=== PATIENT | male | born 1955 | race Caucasian/White ===

== ENCOUNTER 2019-12-06 20:09 | Inpatient (IN) | payer OTHER, SELFPAY ==
[2019-12-06 20:46] LABS: #Basophils 0.1 thou/uL (0.0-0.2); #Eosinphils 0.3 thou/uL (0.0-0.7); #Monocytes 0.6 thou/uL (0.11-0.59); #Neutrophils 5.5 thou/uL (1.40-6.50); %Basophils 0.7 % (0.0-1.0); %Eosinophils 3.4 % (0.0-10.0); %Lymphocytes 23.5 % (21.0-51.0); %Monocytes 6.9 % (0.0-10.0); %Neutrophils 65.5 % (42.0-75.0); Hemoglobin 16.3 g/dL (14.0-18.0); Mean Corpuscular Hemoglobin 34.6 pg (27.0-31.0); Mean Corpuscular Volume 98.6 fL (78.0-98.0); Mean Platelet Volume 8.7 fL (7.4-10.4); Platelet Count 163 thou/uL (130-400); RBC Distribution Width 11.4 % (11.5-14.5); Red Blood Cell (RBC) Count 4.71 mill/uL (4.70-6.10); White Blood Cell (WBC) Count 8.4 thou/uL (4.8-10.8)
[2019-12-06 21:00] LABS: ALT (SGPT) 40 U/L (8-55); AST (SGOT) 19 U/L (5-34); Albumin 4.1 g/dL (3.4-4.8); Alkaline Phosphatase 127 U/L (40-110); Anion Gap 12 mmol/L (10-20); BUN (Urea Nitrogen) 23 mg/dL (8.4-25.7); Bilirubin, Total 0.4 mg/dL (0.2-1.2); Calc. Creatinine Clearance 0 mL/min (70-130); Calcium 9.5 mg/dL (7.8-10.44); Carbon Dioxide 25 mmol/L (23-31); Chloride 107 mmol/L (98-107); Estimated GFR-MDRD 74; Glucose 127 mg/dL (80-115); Potassium 3.7 mmol/L (3.5-5.1); Protein, Total 7.1 g/dL (5.8-8.1); Sodium 140 mmol/L (136-145)
--- NOTE | 2019-12-06 21:14 | CT ---
CT Brain WO Con History: Unresponsive Comparison: CT brain November 08, 2019 Findings: Cystic encephalomalacia of the entire left MCA territory and portion of the INTERN BRAND territory. No acute hemorrhage. No midline shift. No acute osseous abnormality. Old left lateral orbital wall and zygomatic fracture. Wallerian degeneration of the left middle cerebral peduncle. Impression: Chronic findings. No acute intracranial abnormality.
[2019-12-06] MEDS ORDERED: Cefepime 2 GM VIAL ONE (21:26)
--- NOTE | 2019-12-06 21:39 | RAD ---
XR Chest 1 View Portable History: Altered mental status Comparison: None. Findings: Lungs are clear. No pneumothorax. No effusion. Cardiac silhouette and mediastinal contours are relatively normal for lung hyperinflation. No acute osseous abnormality. Impression: No acute intrathoracic abnormality.
[2019-12-06 22:16] LABS: Bacteria/HPF None Seen HPF (None Seen); Bilirubin Negative (Negative); Blood, Urine Trace (Negative); Clarity Clear (Clear); Glucose, Urine (Dipstick) Normal (Negative); Ketone, Urine Negative (Negative); Leukocyte Negative Leu/uL (Negative); Nitrite Negative (Negative); Protein, Urine (Dipstick) 30 mg/dL (Neg-Trace); Specific Gravity, Urine 1.028 (1.002-1.036); Squamous Epithelial None Seen HPF (0-3); Urobilinogen Normal mg/dL (Less than 2); pH, Urine 5.5 (5.0-9.0)
[2019-12-06 22:17] LABS: Sperm/HPF 4+ HPF (None Seen)
[2019-12-06 22:27] LABS: Acetaminophen Less than 6.0 mcg/mL (10.0-30.0); Alcohol Less than 10 mg/dL (Less than 10); Salicylate Less than 8.0 mg/dL (15.0-30.0)
--- NOTE | 2019-12-06 22:47 | PDOC.FPRHP ---
Addendum entered and electronically signed by Carie Kennedy MD 12/07/19 01:36 : Allergies: NKDA Medications: Atorvastatin 20mg, Aspirin 325 mg, trazodone 50mg, escitalopram 10mg, diclofenac 50mg Original Note: - History of Present Illness Chief Complaint: unresponsive History of Present Illness: Pt is a 64 yo male with hx of CVA and tobacco use who presented to ED for AMS and labored breathing. At baseline he has difficulty communicating and he had been given ativan so history was obtained from his sister who is his senior reliability engineer. Sister states that she had dinner with pt and he was fine, then put him in bed at 1900. When she checked on him 5 minutes later, he was unresponsive, had labored breathing and cyanosis of his lips. Before this episode the only symptoms he had were a couple of times of feeling nauseous over the past couple of weeks. About one month ago he fell and was evaluated at the hospital in [place] and sent home. In March of 2019, pt had a CVA. At baseline, he has right sided weakness, uses a wheelchair and has trouble with his speech. He is able to eat and drink normally. ED Course: En route to ED, pt given ativan due to agitation. In ED he was given 1L NS and cefepime 2g. - Allergies/Adverse Reactions Allergies Allergy/AdvReac Type Severity Reaction Status Date / Time No Known Drug Allergies Allergy Verified 12/07/19 02:25 - Home Medications Medication Instructions Recorded Confirmed Type Aspirin 325 mg PO DAILY 12/07/19 12/07/19 History Atorvastatin Calcium 20 mg PO DAILY 12/07/19 12/07/19 History Diclofenac Sodium 50 mg PO BID 12/07/19 12/07/19 History Escitalopram Oxalate 10 mg PO DAILY 12/07/19 12/07/19 History traZODone HCl [Trazodone HCl] 50 mg PO QPM 12/07/19 12/07/19 History - History PMHx: CVA in 2019 PSHx: Peg tube 2018, has been removed FHx: Father- [place], Brother- COPD Social: He is a - [employer]. Smokes 4 cigarettes per day, extensive smoking history, lives with his sister - Review of Systems ROS unobtainable: due to mental status - Vital signs BP: 103/66, Pulse: 93, Resp: 20, O2 sat: 100 on (Room Air), - Physical Exam -Constitutional: At points he was agitated, trying to pull out his IV and pulse ox, and then at other times was sleeping. Did follow some commands but was not able to communicate HEENT: normocephalic and atraumatic, grossly normal hearing, MMM Neck: supple, trachea midline Chest: no-tender to palpation Heart: no murmurs/rubs/gallops, pulses present, no edema -Heart: tachycardic -Lungs: Using accessory muscles for respiration, difficult to auscultate due to sedation Abdomen: soft, non-tender, bowel sounds present -Musculoskeletal: Right sided weakness from CVA in 2019, not able to follow commands but was moving all limbs -Neurological: unable to assess Skin: no rash/lesions, no jaundice Heme/Lymphatic: no unusual bruising or bleeding, no purpura FMR H&P: Results - Labs Result Diagrams: 12/07/19 02:34 12/06/19 20:30 Lab results: WBC 8.4 thou/uL (4.8-10.8) 12/06/19 20:30 Hgb 16.3 g/dL (14.0-18.0) 12/06/19 20:30 Hct 46.5 % (42.0-52.0) 12/06/19 20:30 MCV 98.6 fL (78.0-98.0) H 12/06/19 20:30 Plt Count 163 thou/uL (130-400) 12/06/19 20:30 Neutrophils % 65.5 % (42.0-75.0) 12/06/19 20:30 Sodium 140 mmol/L (136-145) 12/06/19 20:30 Potassium 3.7 mmol/L (3.5-5.1) 12/06/19 20:30 Chloride 107 mmol/L (98-107) 12/06/19 20:30 Carbon Dioxide 25 mmol/L (23-31) 12/06/19 20:30 BUN 23 mg/dL (8.4-25.7) 12/06/19 20:30 Creatinine 1.02 mg/dL (0.7-1.3) 12/06/19 20:30 Glucose 127 mg/dL (80-115) H 12/06/19 20:30 Lactic Acid 1.8 mmol/L (0.5-2.2) 12/06/19 20:30 Calcium 9.5 mg/dL (7.8-10.44) 12/06/19 20:30 Total Bilirubin 0.4 mg/dL (0.2-1.2) 12/06/19 20:30 AST 19 U/L (5-34) 12/06/19 20:30 ALT 40 U/L (8-55) 12/06/19 20:30 Alkaline Phosphatase 127 U/L (40-110) H 12/06/19 20:30 Serum Total Protein 7.1 g/dL (5.8-8.1) 12/06/19 20:30 Albumin 4.1 g/dL (3.4-4.8) 12/06/19 20:30 Urine Ketones Negative mg/dL (Negative) 12/06/19 21:52 Urine Blood Trace (Negative) A 12/06/19 21:52 Urine Nitrite Negative (Negative) 12/06/19 21:52 Ur Leukocyte Esterase Negative Sanjay/uL (Negative) 12/06/19 21:52 Urine RBC 7-10 HPF (0-3) A 12/06/19 21:52 Urine WBC 11-20 HPF (0-3) A 12/06/19 21:52 Ur Squamous Epith Cells None Seen HPF (0-3) 12/06/19 21:52 Urine Bacteria None Seen HPF (None Seen) 12/06/19 21:52 Laboratory Tests 12/06/19 12/06/19 20:30 20:30 Lactic Acid 1.8 Troponin I 0.022 FMR H&P: A/P - Plan 1. SIRS -meets criteria due to HR and RR - start Rocephin and Vanc -was given 1L NS in ED, will add 1L LR bolus and then maintenance at 125ml/hr -labs to look for source: UA, U/B Cx -D-dimer to r/o PE 2. AMS -NPO until bedside swallow -gave Aspirin [place] -can consider TIA, evaluate neuro status when not sedated, possible MRI 3. Tobacco Use -encourage cessation 4. Hx of CVA -consult PT/OT -continue home meds Code: Full Prophylaxis: Lovenox PCP: [place] [facility] call Disposition: admit to stroke for further eval and workup of acute status change , expected LOS>48hrs FMR H&P: Upper Level - Plan Date/Time: 12/06/19 5529 I, Eligio Rehman DO, have evaluated this patient and agree with findings/plan as outlined by finance accounting internship resident. Pertinent changes/additions are listed here. 64 yo w pmhx sig for Lsided CVA w residual deficit presents for acute change in status. Sister, who he lives with reports that earlier this evening he became diaphoretic and dyspneic acutely. She called EMS at that time, he was improving by the time they arrived. She reports he is sleepy, but back to baseline upon my examination. She denies any preceding symptoms. En route he was given Ativan for agitation, in the ED CT brain was neg. he was given 1L and cefepime, labs wnl. EKG reveals sinus tach. No O2 requirement, vss. Physical exam reveals previously mentioned deficits, chest: regular rhythm, ctab. Abd: nttp. Arousable to verbal and painful stimulation. GCS 12-13. Differential is broad at this point, consider SIRS vs PE as primary diagnosis. Will further eval these with procal/ddimer, begin broad spectrum abx and give another L of fluid. TIA is another possibility, however less likely given story. Consider MRI/echo/ risk stratification in the AM. Pt is stable at this point for admission to stroke floor, however he should be monitored for signs of deterioration, or lack of improvement with the above mentioned interventions. See finance accounting internship note for mgmt. of chronic problems. ELOS>48hrs. Addendum - Attending - Attending Attestation Date/Time: 12/07/19 8137 I personally evaluated the patient and discussed the management with Dr. Kennedy/ Ori. I agree with the History, Examination, Assessment and Plan documented above with any addition or exceptions noted below. seen and evaluated on 12/05. presented with AMS from baseline. No family at time of my exam and had receive ativan for agitation. exam unremarkable but unable to assess neuro due to sedation. admit for encephalopathy NOS will continue to monitor. Meets SIRS criteria but no identifiable source at this time. will continue to evaluate for possible source of infection.
[2019-12-07] MEDS ORDERED: Acetaminophen 325 MG TAB PO PRN ×2 (02:08→02:22)
[2019-12-07] MEDS ORDERED: Ondansetron PF 4 MG/2 ML Vial IVP PRN (02:22)
[2019-12-07] MEDS ORDERED: Acetaminophen 650 MG Suppository PR PRN (02:22)
[2019-12-07] MEDS ORDERED: Ondansetron ODT 4 MG TAB PO PRN (02:22)
[2019-12-07 02:40] LABS: #Basophils 0.1 thou/uL (0.0-0.2); #Eosinphils 0.2 thou/uL (0.0-0.7); #Lymphocytes 2.8 thou/uL (1.20-3.40); #Monocytes 0.8 thou/uL (0.11-0.59); #Neutrophils 4.6 thou/uL (1.40-6.50); %Eosinophils 2.5 % (0.0-10.0); %Lymphocytes 32.6 % (21.0-51.0); %Monocytes 9.7 % (0.0-10.0); %Neutrophils 54.2 % (42.0-75.0); Hemoglobin 15.3 g/dL (14.0-18.0); Mean Corpuscular HGB CONC 34.8 g/dL (32.0-36.0); Mean Corpuscular Hemoglobin 34.7 pg (27.0-31.0); Mean Corpuscular Volume 99.7 fL (78.0-98.0); Mean Platelet Volume 8.6 fL (7.4-10.4); Platelet Count 142 thou/uL (130-400); RBC Distribution Width 11.4 % (11.5-14.5); Red Blood Cell (RBC) Count 4.39 mill/uL (4.70-6.10); White Blood Cell (WBC) Count 8.5 thou/uL (4.8-10.8)
[2019-12-07] MEDS ORDERED: Vancomycin HCl 1.5 GM in Sodium Chloride 0.9% 250 ML 300 ML IVPB SCH ×2 (02:45→09:00)
[2019-12-07] MEDS ORDERED: Lactated Ringer's 1,000 ML IV SCH (02:45)
[2019-12-07] MEDS ORDERED: Aspirin 300 MG Suppository PR SCH (02:45)
[2019-12-07 03:18] LABS: ALT (SGPT) 33 U/L (8-55); AST (SGOT) 17 U/L (5-34); Albumin 3.8 g/dL (3.4-4.8); Alkaline Phosphatase 111 U/L (40-110); Anion Gap 10 mmol/L (10-20); BUN (Urea Nitrogen) 23 mg/dL (8.4-25.7); Bilirubin, Total 0.4 mg/dL (0.2-1.2); Calc. Creatinine Clearance 104 mL/min (70-130); Calcium 8.6 mg/dL (7.8-10.44); Carbon Dioxide 26 mmol/L (23-31); Chloride 109 mmol/L (98-107); Estimated GFR-MDRD 82; Globulin 2.6 g/dL (2.4-3.5); Glucose 108 mg/dL (80-115); Potassium 4.1 mmol/L (3.5-5.1); Protein, Total 6.4 g/dL (5.8-8.1); Sodium 141 mmol/L (136-145)
[2019-12-07] MEDS: cefTRIAXone\\ROCEPHIN 2 GM in Sodium Chloride 0.9% 100 ML IVPB SCH (05:50)
[2019-12-07] MEDS: Lactated Ringer's 1,000 ML IV SCH ×3 (06:21→20:15)
--- NOTE | 2019-12-07 06:57 | PDOC.FM ---
- Subjective Subjective: Patient denies any acute concerns or pain. He denies dyspnea and chest pain. - Objective MAR Reviewed: Yes Vital Signs & Weight: Vital Signs (12 hours) Temp Pulse Resp BP Pulse Ox 12/07/19 04:00 82 20 105/62 97 12/07/19 02:22 98.5 F 95 24 H 115/76 95 12/07/19 01:45 97 12/06/19 20:23 98.5 F 95 24 H 115/76 95 Weight Weight 91.626 kg Result Diagrams: 12/07/19 02:34 12/07/19 02:34 Radiology Reviewed by me: Yes Phys Exam - Physical Examination Patient anxious appearing, restless, moving legs persistently Neck: no JVD Respiratory: clear to auscultation bilateral Cardiovascular: RRR, no significant murmur, no rub Gastrointestinal: soft, non-tender, no distention, positive bowel sounds Musculoskeletal: no edema, pulses present R sided weakness (2/5) w/ RUE contractures Skin: no rash, normal turgor Dx/Plan - Plan Plan: SIRS - unknown etiology of infection - On Rocephin and Vanc -LR IVF @ 125ml/hr - CTA pending to evaluate for PE Encephalopathy 2/2 possible CVA - Pending CT PE results, possible brain MRI brain, ECHO - Patient at high risk for delirium. Reduce risk by: - Frequently reorienting the patient - keep blinds open during day - Make sure patient is having bowel movements Hx of CVA - Baseline R sided weakness -consult PT/OT -continue home meds Tobacco Use -encourage cessation Code: Full Prophylaxis: Lovenox PCP: [place] [facility] call Disposition: Eval and workup of acute status change, expected LOS>48hrs Addendum - Attending - Attending Attestation Date/Time: 12/07/19 2090 I personally evaluated the patient and discussed the management with Dr. Arias I agree with the History, Examination, Assessment and Plan documented above with any addition or exceptions noted below - Patient sitting at side of bed; mumbles but able to answer some simple questions. Afebrile VSS. A/P: 1) Acute AMS - CT brain with changes from prior CVA; no new findings. Procal negative. pending bedside swallow. Neurology consulted. Will check ammonia level and ABG. 2) Tachycardia and AMS- unable to obtain CTA to evaluate for PE due to agitation ; will start on therapeutic lovenox pending ability to get CTA. 3) H/o large CVA with resideual right hemoparesis- continue to monitor
[2019-12-07] MEDS ORDERED: Enoxaparin Sodium 40 MG/0.4 ML SYRINGE SC SCH (09:00)
[2019-12-07] MEDS: Lorazepam 2 MG/ML VIAL SLOW IVP PRN ×2 (09:15→21:00)
[2019-12-07] MEDS: Atorvastatin Calcium 20 MG TAB PO SCH (09:56)
[2019-12-07] MEDS: Aspirin 325 MG TAB PO SCH (09:56)
[2019-12-07] MEDS: Diclofenac Sodium 50 MG DR TAB PO SCH ×2 (09:56→20:15)
[2019-12-07] MEDS: Escitalopram Oxalate 10 mg Tablet PO SCH (09:57)
[2019-12-07] MEDS ORDERED: Lorazepam 2 MG/ML VIAL SLOW IVP SCH (10:04)
[2019-12-07] MEDS: Vancomycin HCl 1.25 GM in Sodium Chloride 0.9% 250 ML 250 ML IVPB SCH (14:26)
[2019-12-07 14:37] LABS: Amphetamine Not Detected (NotDetected); Benzodiazepine Screen Detected (NotDetected); Cocaine Metabolite Screen Not Detected (NotDetected); Medtox Reader # READER 1; Methamphetamine Not Detected (NotDetected); Opiate Screen Not Detected (NotDetected); Phencyclidine (PCP) Not Detected (NotDetected); THC/Cannabinoid Screen Not Detected (NotDetected)
[2019-12-07 14:38] LABS: Barbiturates Screen Not Detected (NotDetected); Medtox Control Line Valid? VALID (VALID); Methadone Not Detected (NotDetected); Oxycodone Screen Not Detected (NotDetected); Tricyclic Screen Not Detected (NotDetected)
--- NOTE | 2019-12-07 15:02 | CON ---
NEUROLOGY CONSULTATION DATE OF CONSULTATION: 12/07/2019 REASON FOR CONSULTATION: Altered mental status. HISTORY OF PRESENT ILLNESS: Mr. Anatoly Porras is a 64-year-old male with history significant for CVA with residual right hemiparesis and right facial droop and nicotine abuse, presented to the emergency room with altered mental status and difficulty breathing. The patient seems to be extremely agitated and history is provided by the patient's twin sister who is real estate loan processor. According to the sister , he had CVAs in March 2019 and since then she has been taking care of him. At baseline, he has right-sided weakness and uses a wheelchair and problem with speech, but still he was able to carry a conversation yesterday. He was fine until dinner. Around 7 p.m., she helped him to the bed and around 5 minutes later, he had extremely labored breathing. His lips were blue and he was sweating all over and became unresponsive. She did not notice any abnormal body movements or jerking or seizure-like activity. He was brought to the hospital and admitted for further evaluation. He became extremely agitated and received Ativan en route to the hospital. Neurology was consulted for altered mental status. HOME MEDICATIONS: 1. Aspirin 325 mg daily. 2. Atorvastatin 20 mg daily. 3. Diclofenac sodium 50 mg p.o. b.i.d. 4. Escitalopram oxalate 10 mg daily. 5. Trazodone 50 mg p.o. q.a.m. PAST MEDICAL HISTORY: Diabetes, hypertension, hyperlipidemia, stroke in 2019 with residual right hemiparesis. PAST SURGICAL HISTORY: Status post PEG tube placement 2018, which has been removed. FAMILY HISTORY: Significant for coronary artery disease and COPD. SOCIAL HISTORY: He is a [employer] . He smokes 4 cigarettes per day. Lives with his sister who is a real estate loan processor. REVIEW OF SYSTEMS: Unobtainable due to mental status. - Allergies/Adverse Reactions Allergies Allergy/AdvReac Type Severity Reaction Status Date / Time No Known Drug Allergies Allergy Verified 12/07/19 02:25 - Home Medications Medication Instructions Recorded Confirmed Type Aspirin 325 mg PO DAILY 12/07/19 12/07/19 History Atorvastatin Calcium 20 mg PO DAILY 12/07/19 12/07/19 History Diclofenac Sodium 50 mg PO BID 12/07/19 12/07/19 History Escitalopram Oxalate 10 mg PO DAILY 12/07/19 12/07/19 History traZODone HCl [Trazodone HCl] 50 mg PO QPM 12/07/19 12/07/19 History Lab results: WBC 8.4 thou/uL (4.8-10.8) 12/06/19 20:30 Hgb 16.3 g/dL (14.0-18.0) 12/06/19 20:30 Hct 46.5 % (42.0-52.0) 12/06/19 20:30 MCV 98.6 fL (78.0-98.0) H 12/06/19 20:30 Plt Count 163 thou/uL (130-400) 12/06/19 20:30 Neutrophils % 65.5 % (42.0-75.0) 12/06/19 20:30 Sodium 140 mmol/L (136-145) 12/06/19 20:30 Potassium 3.7 mmol/L (3.5-5.1) 12/06/19 20:30 Chloride 107 mmol/L (98-107) 12/06/19 20:30 Carbon Dioxide 25 mmol/L (23-31) 12/06/19 20:30 BUN 23 mg/dL (8.4-25.7) 12/06/19 20:30 Creatinine 1.02 mg/dL (0.7-1.3) 12/06/19 20:30 Glucose 127 mg/dL (80-115) H 12/06/19 20:30 Lactic Acid 1.8 mmol/L (0.5-2.2) 12/06/19 20:30 Calcium 9.5 mg/dL (7.8-10.44) 12/06/19 20:30 Total Bilirubin 0.4 mg/dL (0.2-1.2) 12/06/19 20:30 AST 19 U/L (5-34) 12/06/19 20:30 ALT 40 U/L (8-55) 12/06/19 20:30 Alkaline Phosphatase 127 U/L (40-110) H 12/06/19 20:30 Serum Total Protein 7.1 g/dL (5.8-8.1) 12/06/19 20:30 Albumin 4.1 g/dL (3.4-4.8) 12/06/19 20:30 Urine Ketones Negative mg/dL (Negative) 12/06/19 21:52 Urine Blood Trace (Negative) A 12/06/19 21:52 Urine Nitrite Negative (Negative) 12/06/19 21:52 Ur Leukocyte Esterase Negative Sanjay/uL (Negative) 12/06/19 21:52 Urine RBC 7-10 HPF (0-3) A 12/06/19 21:52 Urine WBC 11-20 HPF (0-3) A 12/06/19 21:52 Ur Squamous Epith Cells None Seen HPF (0-3) 12/06/19 21:52 Urine Bacteria None Seen HPF (None Seen) 12/06/19 21:52 Laboratory Tests 12/06/19 12/06/19 20:30 20:30 Lactic Acid 1.8 Troponin I 0.022 PHYSICAL EXAMINATION: VITAL SIGNS: Blood pressure 100/60, pulse 80, respiratory rate 18. GENERAL: Extremely agitated male, in acute distress. He is oriented to person only. CVS: Regular rate and rhythm. CHEST: Clear. ABDOMEN: Soft. NECK: No carotid bruit. NEUROLOGIC: Mental status; the patient is alert and oriented to person only. He does not follow commands. He does not maintain eye contact. Cranial nerves; pupils round and reactive to light. Right facial droop. Extraocular movements intact. Tongue midline. Hearing seems to be intact. Motor, right hemiparesis. Reflexes, brisk on the right. Cerebellar; unable to perform on the right secondary to weakness. Gait deferred due to patient's safety reasons. LABORATORY DATA: I reviewed the head CT which was negative for acute intracranial pathology. ASSESSMENT AND PLAN: Mr. Anatoly Porras is consulted for altered mental status. He does have risk factors for stroke. Presentation seems more like delirium than acute process. Recommend MRI of the brain to rule out acute intracranial process. If not possible due to agitation, then repeat Head CT 48 hours after symptom onset. Neuro checks every 4 hours. Permissive control of blood pressure at this time. Continue aspirin per rectal for secondary stroke infection. N.p.o. until cleared by Speech. Strict control of blood glucose. Continue home medications. Continue medical management per primary team. Patient could not tolerate EEG. Observe delirium precautions. Case discussed with the resident taking care of the patient. Thank you for the consult. Job ID: [id number] [facility]
[2019-12-07] MEDS: Enoxaparin Sodium 100 MG/ML SYRINGE SC SCH (20:15)
[2019-12-07] MEDS: traZODone HCl 50 MG TAB PO SCH (20:15)
[2019-12-08] MEDS: Vancomycin HCl 1.25 GM in Sodium Chloride 0.9% 250 ML 250 ML IVPB SCH ×2 (03:29→15:34)
[2019-12-08] MEDS: Lactated Ringer's 1,000 ML IV SCH (03:30)
[2019-12-08 04:32] LABS: Hemoglobin 14.2 g/dL (14.0-18.0); Platelet Count 137 thou/uL (130-400)
[2019-12-08] MEDS: cefTRIAXone\\ROCEPHIN 2 GM in Sodium Chloride 0.9% 100 ML IVPB SCH (05:34)
--- NOTE | 2019-12-08 07:36 | PDOC.FM ---
- Subjective Subjective: Patient has no acute concerns this morning. He denies difficulty breathing, MARTINEZ, CP. - Objective Vital Signs & Weight: Vital Signs (12 hours) Temp Pulse Resp BP Pulse Ox 12/08/19 04:00 99.2 F 90 18 114/72 94 L 12/07/19 20:00 98.1 F 110 H 20 150/98 H 95 12/07/19 19:35 94 L Weight Weight 86.545 kg I&O: 12/07/19 12/08/19 12/09/19 06:59 06:59 06:59 Intake Total 1846 Output Total 200 Balance 1646 Result Diagrams: 12/08/19 03:57 12/08/19 03:57 Phys Exam - Physical Examination Constitutional: NAD Restless in bed HEENT: moist MMs, sclera anicteric Neck: no JVD Respiratory: no wheezing, no rales, no rhonchi, clear to auscultation bilateral Cardiovascular: RRR, no significant murmur, no rub Gastrointestinal: soft, non-tender, no distention, positive bowel sounds Musculoskeletal: no edema, pulses present R sided weakness with RUE contractures stable from yesterday Psychiatric: normal affect Dx/Plan - Plan Plan: SIRS - unknown etiology of infection, patient had tachycardia and tachypnea - On Rocephin and Vanc - CTA unable to be obtained 2/2 patient mental status - Therapeutic lovenox started for PE treatment Encephalopathy 2/2 possible CVA - Repeat CTH today to evaluate for stroke - Patient at high risk for delirium. Reduce risk by: - Frequently reorienting the patient - keep blinds open during day - Make sure patient is having bowel movements Hx of CVA - Baseline R sided weakness -consult PT/OT -continue home meds Tobacco Use -encourage cessation Code: Full Prophylaxis: Lovenox [facility] [place] Disposition: Eval and workup of acute status change, expected LOS<48hrs Addendum - Attending - Attending Attestation Date/Time: 12/08/19 1311 I personally evaluated the patient and discussed the management with I agree with the History, Examination, Assessment and Plan documented above with any addition or exceptions noted below. Patient with AMS less agitated at present exam stable right hemiparesis s/p prior CVA need to proceed with repeat CT juma or MRI r/o extension of CVA and r/o PE preferably with CTA. regard agitation and getting stable for further imaging Will try phenobarbital as some concern with using major tranquilizer (rossy et al ) with relative prolonged OT.
[2019-12-08] MEDS: Aspirin 325 MG TAB PO SCH (08:31)
[2019-12-08] MEDS: Atorvastatin Calcium 20 MG TAB PO SCH (08:31)
[2019-12-08] MEDS: Diclofenac Sodium 50 MG DR TAB PO SCH ×2 (08:31→21:38)
[2019-12-08] MEDS: Escitalopram Oxalate 10 mg Tablet PO SCH (08:31)
[2019-12-08] MEDS: Enoxaparin Sodium 100 MG/ML SYRINGE SC SCH ×2 (08:32→21:39)
[2019-12-08 10:25] LABS: Vancomycin, Trough 21.8 ug/mL
[2019-12-08] MEDS ORDERED: Iopamidol-370 76% 500 ML 1 ML ONE (12:07)
--- NOTE | 2019-12-08 14:29 | PDOC.HOSPP ---
- Subjective Encounter Date: 12/08/19 Subjective: NEUROLOGY PROGRESS NOTE Patient continues to be agitated and oriented to person only. - Objective Vital Signs & Weight: Vital Signs (12 hours) Temp Pulse Resp BP BP BP BP 12/08/19 11:15 98.1 F 68 18 102/70 12/08/19 10:13 114/73 130/84 12/08/19 08:00 98.3 F 84 16 109/66 12/08/19 04:00 99.2 F 90 18 114/72 Pulse Ox 12/08/19 11:15 94 L 12/08/19 10:13 12/08/19 08:00 95 12/08/19 04:00 94 L Weight Weight 190 lb 12.8 oz I&O: 12/07/19 12/08/19 12/09/19 06:59 06:59 06:59 Intake Total 1846 Output Total 200 Balance 1646 Result Diagrams: 12/08/19 03:57 12/08/19 03:57 Radiology Reviewed by me: Yes Hospitalist ROS - Review of Systems ROS unobtainable: due to mental status (agiatation) - Medication Medications: Active Medications Generic Name Dose Route Start Last Admin Trade Name Freq PRN Reason Stop Dose Admin Aspirin 325 mg 12/07/19 09:00 12/08/19 08:31 Aspirin PO 325 mg DAILY JOYCE Administration Atorvastatin Calcium 20 mg 12/07/19 09:00 12/08/19 08:31 Lipitor PO 20 mg DAILY JOYCE Administration Diclofenac Sodium 50 mg 12/07/19 09:00 12/08/19 08:31 Voltaren PO 50 mg BID JOYCE Administration Enoxaparin Sodium 90 mg 12/07/19 21:00 12/08/19 08:32 Lovenox SC 90 mg 0900,2100 JOYCE Administration Escitalopram Oxalate 10 mg 12/07/19 09:00 12/08/19 08:31 Lexapro PO 10 mg DAILY JOYCE Administration Ceftriaxone Sodium 2 gm/ 100 mls @ 200 mls/hr 12/07/19 05:00 12/08/19 05:34 Sodium Chloride IVPB 100 mls 0500 JOYCE Administration Vancomycin HCl 1.25 gm/ Sodium 250 mls @ 166.667 mls/hr 12/07/19 15:00 03:29 Chloride IVPB 250 mls 0300,1500 JOYCE Administration Lorazepam 1 mg 12/07/19 08:31 12/07/19 21:00 Ativan SLOW IVP 1 mg Q4H PRN Administration Anxiety/Agitation Trazodone HCl 50 mg 12/07/19 21:00 12/07/19 20:15 Desyrel PO 50 mg QPM JOYCE Administration - Exam General Appearance: awake alert Eye: PERRL ENT: normocephalic atraumatic Neck: supple Heart: RRR Respiratory: CTAB Gastrointestinal: soft Extremities: no cyanosis Skin: normal turgor Neurological: no new deficit, facial droop, hemiplegia, speech deficit Musculoskeletal: no muscle wasting Psychiatric: oriented to person (agitated) Hosp A/P (1) AMS (altered mental status) Code(s): R41.82 - ALTERED MENTAL STATUS, UNSPECIFIED Status: Acute (2) CVA (cerebral vascular accident) Code(s): I63.9 - CEREBRAL INFARCTION, UNSPECIFIED Status: Acute - Plan PT/OT, speech therapy, DVT proph w/lovenox 64 year old with prior CVA consulted for altered mental status. Repeat Head CT 48 hours after symptom onset to rule out acute change. Patient unable to tolerate MRI Brain due to agitation. EEG 3 minutes study did nt reveal any seizure activity . He pulled the leads off so study could not be completed. Observe delirium precautions. Neurochecks every 4 hours. Continue home medications. Continue aspirin and statin for secondary stroke prevention. PT/OT Continue medical management per primary team.
[2019-12-08 14:45] LABS: Vancomycin, Trough 15.5 ug/mL
--- NOTE | 2019-12-08 15:13 | CT ---
CT BRAIN 12/08/19 PROVIDED CLINICAL HISTORY: Stroke. FINDINGS: Comparison is made with the study dated 12/06/19. Extensive encephalomalacia in the distribution of the left middle cerebral artery is redemonstrated. The ventricular system appears unchanged in size and morphology. There is no evidence for intracrania l hemorrhage or mass effect. The extracranial soft tissues and osseous structures demonstrate an unre markable CT appearance. IMPRESSION: No evidence for intracranial hemorrhage or mass effect. POS: THIERNO
--- NOTE | 2019-12-08 15:15 | CT ---
CT PULMONARY ANGIOGRAM WITH IV CONTRAST AND 3D MIP RECONSTRUCTIONS: 12/08/19 PROVIDED CLINICAL HISTORY: Elevated D-dimer. FINDINGS: there is no evidence for central or segmental pulmonary embolus. The heart, pericardium, and great ve ssels demonstrate an unremarkable CT appearance for the phase of contrast in which this study was acq uired. The lungs are free of significant opacity with limitations due to patient respiratory motion. The airway appears grossly patent and of normal caliber. There is no pleural fluid or pneumothorax ap parent. No evidence for thoracic lymph node enlargement. The visualized portions of the upper abdomen appear unremarkable. IMPRESSION: No evidence for central or segmental pulmonary embolus. POS: THIERNO
[2019-12-08] MEDS: traZODone HCl 50 MG TAB PO SCH (21:38)
[2019-12-09] MEDS: Vancomycin HCl 1.25 GM in Sodium Chloride 0.9% 250 ML 250 ML IVPB SCH (04:22)
[2019-12-09] MEDS: cefTRIAXone\\ROCEPHIN 2 GM in Sodium Chloride 0.9% 100 ML IVPB SCH (06:03)
--- NOTE | 2019-12-09 06:40 | PDOC.FM ---
- Subjective Subjective: Patient doing well this morning, denies any acute concerns. - Objective MAR Reviewed: Yes Vital Signs & Weight: Vital Signs (12 hours) Temp Pulse Resp BP Pulse Ox 12/09/19 03:32 97.4 F L 73 18 113/71 96 12/08/19 23:17 70 20 107/73 94 L 12/08/19 20:00 94 L 12/08/19 19:26 97.9 F 69 18 127/81 94 L Weight Weight 86.545 kg I&O: 12/07/19 12/08/19 12/09/19 06:59 06:59 06:59 Intake Total 1846 650 Output Total 200 Balance 1646 650 Result Diagrams: 12/08/19 03:57 12/08/19 03:57 Phys Exam - Physical Examination Constitutional: NAD HEENT: moist MMs, sclera anicteric Neck: no JVD Respiratory: no wheezing, no rales, no rhonchi, clear to auscultation bilateral Cardiovascular: RRR, no significant murmur, no rub Gastrointestinal: soft, non-tender, no distention, positive bowel sounds Musculoskeletal: no edema, pulses present R sided weakness/contractures w/ no interval changes Psychiatric: normal affect Skin: no rash, normal turgor Dx/Plan - Plan Plan: Plan: SIRS - Infection unlikely - d/c Rocephin and Vanc - CTA of chest negative Encephalopathy 2/2 possible CVA - CTH negative - Patient at high risk for delirium. Reduce risk by: - Frequently reorienting the patient - keep blinds open during day - Make sure patient is having bowel movements - Phenobarbital 30 mg BID for agitation Hx of CVA - Baseline R sided weakness -consult PT/OT -continue home meds Tobacco Use -encourage cessation Code: Full Prophylaxis: Lovenox PCP: [place], [facility] call Disposition: Eval and workup of acute status change, patient ready to be discharged pending rehab placement Addendum - Attending - Attending Attestation Date/Time: 12/09/192202 I personally evaluated the patient and discussed the management with Dr. Arias I agree with the History, Examination, Assessment and Plan documented above with any addition or exceptions noted below.
[2019-12-09] MEDS: Enoxaparin Sodium 40 MG/0.4 ML SYRINGE SC SCH (09:11)
[2019-12-09] MEDS: Aspirin 325 MG TAB PO SCH (09:11)
[2019-12-09] MEDS: Atorvastatin Calcium 20 MG TAB PO SCH (09:11)
[2019-12-09] MEDS: Escitalopram Oxalate 10 mg Tablet PO SCH (09:11)
[2019-12-09] MEDS: Diclofenac Sodium 50 MG DR TAB PO SCH ×2 (09:24→20:55)
[2019-12-09] MEDS: traZODone HCl 50 MG TAB PO SCH (20:55)
--- NOTE | 2019-12-10 05:20 | PDOC.FM ---
- Subjective Subjective: Pt has no complaints overnight. He states he is ready to go home. - Objective Vital Signs & Weight: Vital Signs (12 hours) Temp Pulse Resp BP Pulse Ox 12/10/19 00:30 97 F L 51 L 14 127/47 L 94 L 12/09/19 20:41 97.9 F 57 L 14 127/78 94 L Weight Weight 86.545 kg I&O: 12/08/19 12/09/19 12/10/19 06:59 06:59 06:59 Intake Total 1846 1000 385 Output Total 200 Balance 1646 1000 385 Result Diagrams: 12/08/19 03:57 12/08/19 03:57 Phys Exam - Physical Examination Constitutional: NAD HEENT: moist MMs, sclera anicteric Neck: supple, full ROM Respiratory: no wheezing, no rales, clear to auscultation bilateral Cardiovascular: RRR, no significant murmur Gastrointestinal: soft, non-tender, positive bowel sounds Musculoskeletal: no edema, pulses present has weakness of right side and speech deficit, residual from previous CVA Skin: no rash, cap refill <2 seconds Dx/Plan - Plan Plan: SIRS - Infection unlikely - d/c Rocephin and Vanc - CTA of chest negative Encephalopathy 2/2 possible TIA - CT head negative x2 - Patient at high risk for delirium. Reduce risk by: - Frequently reorienting the patient - keep blinds open during day - Make sure patient is having bowel movements - Phenobarbital 30 mg BID for agitation, had some episodes of HR in 50s so will monitor throughout the day and consider d/c -was on aspirin 325mg at home, consider starting dual antiplatelet therapy Hx of CVA - Baseline R sided weakness -consult PT/OT -continue home meds Tobacco Use -encourage cessation Code: Full Prophylaxis: Lovenox PCP: [facility] call Disposition: Eval and workup of acute status change, patient ready to be discharged pending rehab placement Addendum - Attending - Attending Attestation Date/Time: 12/10/19 1213 I personally evaluated the patient and discussed the management with Dr. Kennedy. I agree with the History, Examination, Assessment and Plan documented above with any addition or exceptions noted below. Patient overall stable. Mentation improved apparently. We will review tele strip for chronic arrhythmias. Awaiting rehab screen and if mentation remains as is he should be stable for d/c.
[2019-12-10] MEDS: Escitalopram Oxalate 10 mg Tablet PO SCH (08:06)
[2019-12-10] MEDS: Aspirin 325 MG TAB PO SCH (08:06)
[2019-12-10] MEDS: Enoxaparin Sodium 40 MG/0.4 ML SYRINGE SC SCH (08:06)
[2019-12-10] MEDS: Diclofenac Sodium 50 MG DR TAB PO SCH ×2 (08:06→20:33)
[2019-12-10] MEDS: Atorvastatin Calcium 20 MG TAB PO SCH (08:06)
--- NOTE | 2019-12-10 11:33 | PDOC.HOSPP ---
- Subjective Encounter Date: 12/10/19 Subjective: NEUROLOGY PROGRESS NOTE Patient oriented to person only. Participated with PT today. - Objective Vital Signs & Weight: Vital Signs (12 hours) Temp Pulse Pulse Pulse Resp BP BP 12/10/19 10:04 68 68 140/73 107/64 12/10/19 08:20 12/10/19 07:42 97.5 F L 53 L 16 12/10/19 05:20 98 F 70 16 12/10/19 00:30 97 F L 51 L 14 BP BP Pulse Ox 12/10/19 10:04 12/10/19 08:20 93 L 12/10/19 07:42 115/67 93 L 12/10/19 05:20 122/70 95 12/10/19 00:30 127/47 L 94 L Weight Weight 190 lb 12.8 oz I&O: 12/09/19 12/10/19 12/11/19 06:59 06:59 06:59 Intake Total 1000 385 300 Balance 1000 385 300 Result Diagrams: 12/08/19 03:57 12/08/19 03:57 Radiology Reviewed by me: Yes EKG Reviewed by me: Yes Hospitalist ROS - Review of Systems ROS unobtainable: due to mental status - Medication Medications: Active Medications Generic Name Dose Route Start Last Admin Trade Name Freq PRN Reason Stop Dose Admin Aspirin 325 mg 12/07/19 09:00 12/10/19 08:06 Aspirin PO 325 mg DAILY JOYCE Administration Atorvastatin Calcium 20 mg 12/07/19 09:00 12/10/19 08:06 Lipitor PO 20 mg DAILY JOYCE Administration Diclofenac Sodium 50 mg 12/07/19 09:00 12/10/19 08:06 Voltaren PO 50 mg BID JOYCE Administration Enoxaparin Sodium 40 mg 12/09/19 09:00 12/10/19 08:06 Lovenox SC 40 mg 0900 JOYCE Administration Escitalopram Oxalate 10 mg 12/07/19 09:00 12/10/19 08:06 Lexapro PO 10 mg DAILY JOYCE Administration Lorazepam 1 mg 12/07/19 08:31 12/07/19 21:00 Ativan SLOW IVP 1 mg Q4H PRN Administration Anxiety/Agitation Phenobarbital 30 mg 12/08/19 21:00 12/10/19 09:17 Phenobarbital PO 30 mg BID JOYCE Administration Trazodone HCl 50 mg 12/07/19 21:00 12/09/19 20:55 Desyrel PO 50 mg QPM JOYCE Administration - Exam General Appearance: awake alert Eye: PERRL ENT: dry oral mucosa Neck: supple Heart: RRR Respiratory: CTAB Gastrointestinal: soft Extremities: no cyanosis Skin: normal turgor Neurological: no new deficit Musculoskeletal: normal tone Psychiatric: normal affect, normal behavior, A&O x 3, oriented to person Hosp A/P (1) AMS (altered mental status) Code(s): R41.82 - ALTERED MENTAL STATUS, UNSPECIFIED Status: Acute (2) CVA (cerebral vascular accident) Code(s): I63.9 - CEREBRAL INFARCTION, UNSPECIFIED Status: Acute - Plan PT/OT, speech therapy 64 year old with prior CVA consulted for altered mental status. Repeat HCT negative for new stroke. Repeat Head CT 48 hours after symptom onset reviewed and was negative for acute change EEG 3 minutes study did nt reveal any seizure activity . He pulled the leads off so study could not be completed. Observe delirium precautions. Neurochecks every 4 hours. Continue home medications. Continue aspirin and statin for secondary stroke prevention. PT/OT Continue medical management per primary team.
[2019-12-10] MEDS: traZODone HCl 50 MG TAB PO SCH (20:33)
--- NOTE | 2019-12-11 06:26 | PDOC.FM ---
- Subjective Subjective: Pt is stable. He says he is having some mild right arm pain, but this is something he has chronically from his CVA last year. He did not want any pain medication at this time. Nurse says no agitation overnight - Objective Vital Signs & Weight: Vital Signs (12 hours) Temp Pulse Resp BP BP BP Pulse Ox 12/11/19 04:00 97.4 F L 74 16 116/74 95 12/11/19 00:00 97.2 F L 57 L 16 108/70 98 12/10/19 20:00 97.9 F 60 16 117/65 109/75 98 Weight Weight 89.925 kg I&O: 12/09/19 12/10/19 12/11/19 06:59 06:59 06:59 Intake Total 1000 385 900 Balance 1000 385 900 Result Diagrams: 12/08/19 03:57 12/08/19 03:57 Phys Exam - Physical Examination Constitutional: NAD HEENT: moist MMs, sclera anicteric Neck: no JVD, supple Respiratory: no wheezing, clear to auscultation bilateral Cardiovascular: RRR, no significant murmur Gastrointestinal: soft, non-tender, positive bowel sounds Musculoskeletal: no edema, pulses present he has some right sided weakness from previous CVA Psychiatric: normal affect Skin: no rash, normal turgor Dx/Plan - Plan Plan: Encephalopathy 2/2 possible TIA - CT head negative x2 - Patient at high risk for delirium. Reduce risk by: - Frequently reorienting the patient - keep blinds open during day - Make sure patient is having bowel movements -discontinued phenobarbital yesterday, no complaints of agitation overnight -was on aspirin 325mg at home -awaiting placement at rehab SIRS - Infection unlikely - d/c Rocephin and Vanc - CTA of chest negative Hx of CVA - Baseline R sided weakness -consult PT/OT -continue home meds Tobacco Use -encourage cessation Code: Full Prophylaxis: Lovenox PCP: [facility] call Disposition: Eval and workup of acute status change, patient ready to be discharged pending rehab placement Addendum - Attending - Attending Attestation Date/Time: 12/11/19 1537 I personally evaluated the patient and discussed the management with Dr. Kennedy. I agree with the History, Examination, Assessment and Plan documented above with any addition or exceptions noted below. Patient overall doing well. Mentation stable. Awaiting placement decision and he should be medically stable once accepted.
[2019-12-11] MEDS: Diclofenac Sodium 50 MG DR TAB PO SCH ×2 (08:56→20:11)
[2019-12-11] MEDS: Atorvastatin Calcium 20 MG TAB PO SCH (08:56)
[2019-12-11] MEDS: Escitalopram Oxalate 10 mg Tablet PO SCH (08:56)
[2019-12-11] MEDS: Aspirin 325 MG TAB PO SCH (08:56)
[2019-12-11] MEDS: Enoxaparin Sodium 40 MG/0.4 ML SYRINGE SC SCH (08:56)
--- NOTE | 2019-12-11 11:56 | PDOC.HOSPP ---
- Subjective Encounter Date: 12/11/19 Subjective: NEUROLOGY PROGRESS NOTE Patient oriented to person only but able to follow commands. More cooperative today. - Objective Vital Signs & Weight: Vital Signs (12 hours) Temp Pulse Resp BP BP Pulse Ox 12/11/19 07:30 97.6 F 55 L 20 109/64 96 12/11/19 04:00 97.4 F L 74 16 116/74 95 12/11/19 00:00 97.2 F L 57 L 16 108/70 98 Weight Weight 198 lb 4 oz I&O: 12/10/19 12/11/19 12/12/19 06:59 06:59 06:59 Intake Total 385 900 300 Balance 385 900 300 Result Diagrams: 12/08/19 03:57 12/08/19 03:57 Radiology Reviewed by me: Yes EKG Reviewed by me: Yes Hospitalist ROS - Review of Systems ROS unobtainable: due to mental status - Medication Medications: Active Medications Generic Name Dose Route Start Last Admin Trade Name Freq PRN Reason Stop Dose Admin Acetaminophen 650 mg 12/07/19 02:22 12/11/19 06:24 Tylenol PO 650 mg Q4H PRN Administration Headache/Fever/Mild Pain (1-3) Aspirin 325 mg 12/07/19 09:00 12/11/19 08:56 Aspirin PO 325 mg DAILY JOYCE Administration Atorvastatin Calcium 20 mg 12/07/19 09:00 12/11/19 08:56 Lipitor PO 20 mg DAILY JOYCE Administration Diclofenac Sodium 50 mg 12/07/19 09:00 12/11/19 08:56 Voltaren PO 50 mg BID JOYCE Administration Enoxaparin Sodium 40 mg 12/09/19 09:00 12/11/19 08:56 Lovenox SC 40 mg 09 JOYCE Administration Escitalopram Oxalate 10 mg 12/07/19 09:00 12/11/19 08:56 Lexapro PO 10 mg DAILY JOYCE Administration Lorazepam 1 mg 12/07/19 08:31 12/07/19 21:00 Ativan SLOW IVP 1 mg Q4H PRN Administration Anxiety/Agitation Trazodone HCl 50 mg 12/07/19 21:00 12/10/19 20:33 Desyrel PO 50 mg QPM JOYCE Administration - Exam General Appearance: awake alert Eye: PERRL ENT: normocephalic atraumatic Neck: supple Heart: RRR Respiratory: CTAB Gastrointestinal: soft Extremities: no cyanosis Skin: normal turgor Neurological: no new deficit, facial droop, hemiplegia, speech deficit Musculoskeletal: no muscle wasting Psychiatric: normal affect, oriented to person Hosp A/P (1) AMS (altered mental status) Code(s): R41.82 - ALTERED MENTAL STATUS, UNSPECIFIED Status: Acute (2) CVA (cerebral vascular accident) Code(s): I63.9 - CEREBRAL INFARCTION, UNSPECIFIED Status: Acute - Plan PT/OT, speech therapy, out of bed/ambulate 64 year old with prior CVA consulted for altered mental status.More calm today Repeat Head CT 48 hours after symptom onset reviewed and was negative for acute change EEG 3 minutes study did not reveal any seizure activity . He pulled the leads off so study could not be completed. Observe delirium precautions. Neurochecks every 4 hours. Continue home medications. Continue aspirin and statin for secondary stroke prevention. PT/OT Continue medical management per primary team.
[2019-12-11] MEDS: traZODone HCl 50 MG TAB PO SCH (20:11)
--- NOTE | 2019-12-12 05:17 | PDOC.FM ---
- Subjective Subjective: Pt was awake and in a pleasant mood. He has no complaints overnight. Says he is sleeping and eating well. - Objective Vital Signs & Weight: Vital Signs (12 hours) Temp Pulse Resp BP Pulse Ox 12/12/19 04:20 97.8 F 85 16 114/71 97 12/11/19 20:15 98.2 F 65 15 116/80 94 L Weight Weight 89.925 kg I&O: 12/10/19 12/11/19 12/12/19 06:59 06:59 06:59 Intake Total 385 900 900 Balance 385 900 900 Result Diagrams: 12/08/19 03:57 12/08/19 03:57 Phys Exam - Physical Examination Constitutional: NAD HEENT: moist MMs, sclera anicteric Neck: no JVD, supple Respiratory: no wheezing, clear to auscultation bilateral Cardiovascular: RRR, no significant murmur Gastrointestinal: soft, positive bowel sounds Musculoskeletal: no edema, pulses present has right sided weakness and loss of sensation from CVA in 2019 Deviation from normal: A&O x2, this is his baseline Skin: no rash, normal turgor Dx/Plan - Plan Plan: Encephalopathy 2/2 possible TIA - CT head negative x2 - Patient at high risk for delirium. Reduce risk by: - Frequently reorienting the patient - keep blinds open during day - has not had a documented bowel movement since 12/08. He does not complain of any abdominal pain or the urge to defecate. Will add stool softener today. -was on aspirin 325mg at home -awaiting placement at rehab SIRS - Infection unlikely - d/c Rocephin and Vanc - CTA of chest negative Hx of CVA - Baseline R sided weakness -consult PT/OT, speech -continue home meds Tobacco Use -encourage cessation Code: Full Prophylaxis: Lovenox PCP: [facility] call Disposition: Eval and workup of acute status change, patient ready to be discharged pending rehab placement Addendum - Attending - Attending Attestation Date/Time: 12/12/19 1203 I personally evaluated the patient and discussed the management with Dr. Kennedy. I agree with the History, Examination, Assessment and Plan documented above with any addition or exceptions noted below. Patient doing well and stable mentation. Awaiting placement decision from CM.
[2019-12-12 05:47] VITALS: BMI 26.9
[2019-12-12] MEDS: Aspirin 325 MG TAB PO SCH (09:29)
[2019-12-12] MEDS: Escitalopram Oxalate 10 mg Tablet PO SCH (09:29)
[2019-12-12] MEDS: Diclofenac Sodium 50 MG DR TAB PO SCH ×2 (09:29→21:44)
[2019-12-12] MEDS: Enoxaparin Sodium 40 MG/0.4 ML SYRINGE SC SCH (09:29)
[2019-12-12] MEDS: Atorvastatin Calcium 20 MG TAB PO SCH (09:29)
[2019-12-12] MEDS: Senokot S 8.6-50 MG TAB PO SCH ×2 (09:32→21:44)
--- NOTE | 2019-12-12 12:34 | PDOC.HOSPP ---
- Subjective Encounter Date: 12/12/19 Subjective: NEUROLOGY PROGRESS NOTE Patient oriented to person only but able to follow commands. More cooperative and calm today. Awaiting placement. - Objective Vital Signs & Weight: Vital Signs (12 hours) Temp Pulse Resp BP Pulse Ox 12/12/19 11:50 97.9 F 92 16 107/63 66 L 12/12/19 07:42 97.9 F 79 16 99/68 95 12/12/19 04:20 97.8 F 85 16 114/71 97 Weight Weight 198 lb 12.8 oz I&O: 12/11/19 12/12/19 12/13/19 06:59 06:59 06:59 Intake Total 900 900 Balance 900 900 Result Diagrams: 12/08/19 03:57 12/08/19 03:57 Radiology Reviewed by me: Yes EKG Reviewed by me: Yes Hospitalist ROS - Review of Systems ROS unobtainable: due to mental status - Medication Medications: Active Medications Generic Name Dose Route Start Last Admin Trade Name Freq PRN Reason Stop Dose Admin Acetaminophen 650 mg 12/07/19 02:22 12/11/19 06:24 Tylenol PO 650 mg Q4H PRN Administration Headache/Fever/Mild Pain (1-3) Aspirin 325 mg 12/07/19 09:00 12/12/19 09:29 Aspirin PO 325 mg DAILY JOYCE Administration Atorvastatin Calcium 20 mg 12/07/19 09:00 12/12/19 09:29 Lipitor PO 20 mg DAILY JOYCE Administration Diclofenac Sodium 50 mg 12/07/19 09:00 12/12/19 09:29 Voltaren PO 50 mg BID JOYCE Administration Enoxaparin Sodium 40 mg 12/09/19 09:00 12/12/19 09:29 Lovenox SC 40 mg 09 JOYCE Administration Escitalopram Oxalate 10 mg 12/07/19 09:00 12/12/19 09:29 Lexapro PO 10 mg DAILY JOYCE Administration Lorazepam 1 mg 12/07/19 08:31 12/07/19 21:00 Ativan SLOW IVP 1 mg Q4H PRN Administration Anxiety/Agitation Pantoprazole Sodium 40 mg 12/12/19 09:00 12/12/19 09:29 Protonix PO 40 mg DAILY JOYCE Administration Senna/Docusate Sodium 1 tab 12/12/19 09:00 07/08/20 09:32 Senokot S PO 1 tab BID JOYCE Administration Trazodone HCl 50 mg 12/07/19 21:00 12/11/19 20:11 Desyrel PO 50 mg QPM JOYCE Administration - Exam General Appearance: awake alert Eye: PERRL ENT: normocephalic atraumatic Neck: supple Heart: RRR Respiratory: CTAB Gastrointestinal: soft Extremities: no cyanosis Skin: normal turgor Neurological: facial droop, hemiplegia, speech deficit Musculoskeletal: no muscle wasting Psychiatric: normal affect, normal behavior, oriented to person Hosp A/P (1) AMS (altered mental status) Code(s): R41.82 - ALTERED MENTAL STATUS, UNSPECIFIED Status: Acute (2) CVA (cerebral vascular accident) Code(s): I63.9 - CEREBRAL INFARCTION, UNSPECIFIED Status: Acute - Plan PT/OT, speech therapy, DVT proph w/lovenox 64 year old with prior CVA consulted for altered mental status. Clinically much improved and awaiting placement. CM on board Repeat Head CT 48 hours after symptom onset reviewed and was negative for acute change EEG 3 minutes study did not reveal any seizure activity . He pulled the leads off so study could not be completed. Observe delirium precautions. Neurochecks every 4 hours. Continue home medications. Continue aspirin and statin for secondary stroke prevention. PT/OT Counseled about smoking cessation. Continue medical management per primary team. Plan discussed during MDR rounds with the floor team.
[2019-12-12] MEDS: traZODone HCl 50 MG TAB PO SCH (21:44)
--- NOTE | 2019-12-13 05:46 | PDOC.FM ---
- Subjective Subjective: Pt is stable. No complaints overnight. He is ready to go home. - Objective Vital Signs & Weight: Vital Signs (12 hours) Temp Pulse Resp BP Pulse Ox 12/13/19 04:00 97.5 F L 64 16 108/72 95 12/13/19 00:29 98.8 F 85 99/61 93 L 12/12/19 21:07 98.6 F 76 106/75 96 12/12/19 20:00 96 Weight Weight 90.174 kg I&O: 12/11/19 12/12/19 12/13/19 06:59 06:59 06:59 Intake Total 900 900 960 Balance 900 900 960 Result Diagrams: 12/08/19 03:57 12/08/19 03:57 Phys Exam - Physical Examination Constitutional: NAD HEENT: moist MMs, sclera anicteric Neck: no JVD, supple Respiratory: no wheezing, clear to auscultation bilateral Cardiovascular: RRR, no significant murmur Gastrointestinal: soft, non-tender Musculoskeletal: no edema residual right sided weakness from previous CVA Psychiatric: normal affect Skin: no rash, cap refill <2 seconds Dx/Plan - Plan Plan: Encephalopathy 2/2 possible TIA - pt appears to be back at baseline. His sister is prepared to take him home and f/u outpatient with [facility] to discuss HH. CM is involved. -CT head negative x2 - Patient at high risk for delirium. Reduce risk by: - Frequently reorienting the patient - keep blinds open during day -was on aspirin 325mg at home SIRS - resolved - d/c Rocephin and Vanc - CTA of chest negative Hx of CVA - Baseline R sided weakness -consult PT/OT, speech -continue home meds Constipation -resolved Tobacco Use -encourage cessation Code: Full Prophylaxis: Lovenox PCP: [place], [facility] call Disposition: Eval and workup of acute status change, pt stable and will be discharged home today Addendum - Attending - Attending Attestation Date/Time: 12/13/19 0110 I personally evaluated the patient and discussed the management with Dr. Kennedy. I agree with the History, Examination, Assessment and Plan documented above with any addition or exceptions noted below. Patient doing well. Mentation at baseline per family. Discharge home with family today.
[2019-12-13] MEDS ORDERED: Polyethylene Glycol 3350 17 GM Packet PO SCH (09:00)
[2019-12-13] MEDS: Diclofenac Sodium 50 MG DR TAB PO SCH (09:15)
[2019-12-13] MEDS: Aspirin 325 MG TAB PO SCH (09:15)
[2019-12-13] MEDS: Atorvastatin Calcium 20 MG TAB PO SCH (09:16)
[2019-12-13] MEDS: Escitalopram Oxalate 10 mg Tablet PO SCH (09:16)
[2019-12-13] MEDS: Enoxaparin Sodium 40 MG/0.4 ML SYRINGE SC SCH (09:17)
[2019-12-13] MEDS: Senokot S 8.6-50 MG TAB PO SCH (09:23)
[2019-12-13 12:00] VITALS: BP 114/71; TEMP 98.3
--- NOTE | 2019-12-14 14:17 | DIS ---
DATE OF ADMISSION: 12/06/2019 DATE OF DISCHARGE: 12/13/2019 RESIDENT: Carie Kennedy MD ADMITTING ATTENDING: Jevon Rosas MD DISCHARGE ATTENDING: Rl Matos MD CONSULTS: Neurology. PROCEDURES: None. PRIMARY DIAGNOSIS: Encephalopathy, unknown etiology. SECONDARY DIAGNOSES: 1. Systemic inflammatory response syndrome. 2. Constipation. 3. Tobacco abuse. DISCHARGE MEDICATIONS: 1. Aspirin 325 mg p.o. daily. 2. Atorvastatin 20 mg p.o. daily. 3. Diclofenac 50 mg p.o. b.i.d. 4. Escitalopram 10 mg p.o. daily. 5. Pantoprazole 40 mg p.o. daily. 6. Trazodone 50 mg p.o. at bedtime. No discontinued medications. HISTORY OF PRESENT ILLNESS: Patient is a 64-year-old male, with a past medical history of stroke in 2019 and tobacco use, who presented to the ED for altered mental status. He lives with his sister at home and she is his caregiver. He has a baseline deficit due to his previous stroke and has right-sided weakness and difficulty communicating. His sister states that she had dinner with him and he was at his baseline and then 5 minutes later, she noticed that he was having trouble breathing, looked cyanotic, and was unresponsive. Before this, he had no symptoms other than feeling nauseous for a couple of weeks. He has an extensive smoking history. He was found to be somewhat altered mental status and agitated on exam in the ED. He was admitted to the stroke unit for observation. He had a brain CT done and chest x-ray done in the ER. The brain CT only showed his old CVA. Neurology was consulted. Neurology recommended an MRI and EEG. He was not able to tolerate either. He met SIRS criteria upon admission and antibiotics were started. A CT of the chest was ordered and no pulmonary embolism was seen. The rest of the hospital stay the patient was stable. He was working with Physical Therapy. He returned to his baseline and was ready to be discharged. Originally thought he would be going to inpatient rehab, but his insurance did not approve. His sister felt that he was at his baseline. She takes care of him, so he was discharged home. DISPOSITION: Stable. DISCHARGE INSTRUCTIONS: Location: Home. Diet: Regular diet. Activity: Ad vandana. Followup: Follow up with the [facility]. Job ID: [id number] [facility]
--- NOTE | 2019-12-18 16:52 | EKG ---
Test Reason : Blood Pressure : / mmHG Vent. Rate : 113 BPM Atrial Rate : 113 BPM P-R Int : 152 ms QRS Dur : 138 ms QT Int : 358 ms P-R-T Axes : 073 076 047 degrees QTc Int : 491 ms Sinus tachycardia with Premature atrial complexes with Abberant conduction Right bundle branch block Abnormal ECG Confirmed by YING RAZO M.D. ([id number]), [employer] TAMIKA TRAN ([id number]) on 12/18/2019 4:52:00 PM Referred By: Confirmed By:YING RAZO M.D.
== END 2019-12-13 13:30 | disposition home or self-care (01) | DRG 71 ==
LOC: ERS 20:09 → 2NO 22:21 → 2SE 12-08 11:21
PROVIDERS: ADMIT Family Medicine; ATTEND Family Medicine
DX: G93.49 Other encephalopathy (principal); R65.10 Systemic inflammatory response syndrome (SIRS) of non-infectious origin without acute organ dysfunction; I69.351 Hemiplegia and hemiparesis following cerebral infarction affecting right dominant side; K59.00 Constipation, unspecified; E78.5 Hyperlipidemia, unspecified; E78.00 Pure hypercholesterolemia, unspecified; Z99.3 Dependence on wheelchair; Z87.891 Personal history of nicotine dependence
CPT/HCPCS: 36415; 51701; 70450; 71045; 71275; 80053; 80202; 80306; 80307; 81003; 81015; 82140; 82565; 83605; 84145; 84484; 85014; 85018; 85025; 85049; 85379; 87040; 87086; 93005; 94760; 96365; J0692; J0696; J1650; J2060; J3370; J3490; J7030; J7050; Q9967

== ENCOUNTER 2019-12-21 09:27 | Emergency (ER) | payer OTHER ==
[2019-12-21 10:54] LABS: #Basophils 0.1 thou/uL (0.0-0.2); #Eosinphils 0.1 thou/uL (0.0-0.7); #Monocytes 0.7 thou/uL (0.11-0.59); #Neutrophils 9.7 thou/uL (1.40-6.50); %Basophils 0.7 % (0.0-1.0); %Eosinophils 0.8 % (0.0-10.0); %Lymphocytes 8.4 % (21.0-51.0); %Monocytes 5.9 % (0.0-10.0); %Neutrophils 84.2 % (42.0-75.0); Hemoglobin 15.6 g/dL (14.0-18.0); Mean Corpuscular HGB CONC 33.2 g/dL (32.0-36.0); Mean Corpuscular Hemoglobin 33.2 pg (27.0-31.0); Mean Platelet Volume 8.7 fL (7.4-10.4); Platelet Count 163 thou/uL (130-400); RBC Distribution Width 11.5 % (11.5-14.5); Red Blood Cell (RBC) Count 4.68 mill/uL (4.70-6.10); White Blood Cell (WBC) Count 11.5 thou/uL (4.8-10.8)
--- NOTE | 2019-12-21 11:01 | CT ---
EXAM: CT brain without contrast HISTORY: Seizure COMPARISON: 12/08/2019 TECHNIQUE: Multiple contiguous axial images were obtained and a CT of the brain without contrast. FINDINGS: Stable encephalomalacia is seen in the left MCA distribution from prior infarction. No new confluent infarction is seen. There is no evidence of hydrocephalus, intracranial hemorrhage, or extra-axial fluid collection. The calvarium and overlying soft tissues are unremarkable. There is opacification of the right maxill lauren sinus. The other visualized paranasal sinuses and mastoid air cells are well aerated. IMPRESSION: No evidence of acute intracranial abnormality
[2019-12-21 11:06] LABS: HBSAg Index 0.12 S/CO (0-0.99); HIV (1/2) Antibody/Antigen Non-Reactive (NonReactive); HIV 1/2 INDEX 0.12 S/CO (<1.00); Hep B Surf Ag Non-Reactive S/CO (NonReactive); Hep C IgG Ab Non-Reactive (NonReactive); Hep C Index 0.15 S/CO (0-0.79)
[2019-12-21 11:17] LABS: ALT (SGPT) 42 U/L (8-55); AST (SGOT) 17 U/L (5-34); Albumin 4.2 g/dL (3.4-4.8); Alkaline Phosphatase 135 U/L (40-110); Anion Gap 13 mmol/L (10-20); BUN (Urea Nitrogen) 19 mg/dL (8.4-25.7); Bilirubin, Total 0.3 mg/dL (0.2-1.2); Calc. Creatinine Clearance 0 mL/min (70-130); Calcium 9.1 mg/dL (7.8-10.44); Carbon Dioxide 26 mmol/L (23-31); Chloride 104 mmol/L (98-107); Estimated GFR-MDRD 73; Glucose 127 mg/dL (80-115); Lipase 24 U/L (8-78); Potassium 4.2 mmol/L (3.5-5.1); Protein, Total 7.2 g/dL (5.8-8.1); Sodium 139 mmol/L (136-145)
[2019-12-21 11:18] LABS: Acetaminophen Less than 6.0 mcg/mL (10.0-30.0); Alcohol Less than 10 mg/dL (Less than 10); CK (CPK) 93 U/L (30-200); Salicylate Less than 8.0 mg/dL (15.0-30.0)
[2019-12-21] MEDS ORDERED: Lorazepam 2 MG/ML VIAL ONE (13:11)
== END 2019-12-21 13:36 | disposition short-term general hospital (02) ==
LOC: ERS 09:27
DX: G40.909 Epilepsy, unspecified, not intractable, without status epilepticus (principal); E78.5 Hyperlipidemia, unspecified; Z86.73 Personal history of transient ischemic attack (TIA), and cerebral infarction without residual deficits; Z87.891 Personal history of nicotine dependence; Z79.899 Other long term (current) drug therapy
CPT/HCPCS: 36415; 70450; 80053; 80307; 82140; 82550; 83690; 84146; 84484; 85025; 86803; 87340; 87389; 93005; 96361; 96365; 96375; J1953; J2060